=== PATIENT | male | born 1975 | race Two or more races ===

== ENCOUNTER 2018-11-08 22:23 | Emergency (ER) | payer SELFPAY ==
[~2018-11-08] VITALS: Ht 157.5 cm; Wt 61.2 kg
[2018-11-08 22:38] VITALS: BP 134/83
--- NOTE | 2018-11-08 22:39 | PHYS DOC ---
Adult General Chief Complaint Chief Complaint: SKIN PROBLEM HPI HPI Patient is a 43 year old male that presents to the ER stating that he's been seeing bugs crawling on skin for last 6 months. Describes as black bugs that are crawling on skin and out of throat and in his abdomen. Denies pain says they do itch some. States he is tried everything including even pouring gasoline on his skin. Review of Systems Review of Systems Constitutional: Denies fever or chills [] Eyes: Denies change in visual acuity, redness, or eye pain [] HENT: Denies nasal congestion or sore throat [] Respiratory: Denies cough or shortness of breath [] Cardiovascular: No additional information not addressed in HPI [] GI: Denies abdominal pain, nausea, vomiting, bloody stools or diarrhea [] : Denies dysuria or hematuria [] Musculoskeletal: Denies back pain or joint pain [] Integument: Reports bugs Neurologic: Denies headache, focal weakness or sensory changes [] Endocrine: Denies polyuria or polydipsia [] Psych: Denies SI thoughts. Complete systems were reviewed and found to be within normal limits, except as documented in this note. Physical Exam Physical Exam Constitutional: Well developed, well nourished, no acute distress, non-toxic appearance. [] HENT: Normocephalic, atraumatic, bilateral external ears normal, oropharynx moist, no oral exudates, nose normal. [] Eyes: PERRLA, EOMI, conjunctiva normal, no discharge. [] Neck: Normal range of motion, no tenderness, supple, no stridor. [] Cardiovascular:Heart rate regular rhythm, no murmur [] Lungs & Thorax: Bilateral breath sounds clear to auscultation [] Abdomen: Bowel sounds normal, soft, no tenderness, no masses, no pulsatile masses. [] Skin: Warm, dry, no erythema, no rash. [] Back: No tenderness, no CVA tenderness. [] Extremities: No tenderness, no cyanosis, no clubbing, ROM intact, no edema. [] Neurologic: Alert and oriented X 3, normal motor function, normal sensory function, no focal deficits noted. [] Psychologic: Affect normal, judgement normal, mood normal. [] EKG EKG [] Radiology/Procedures Radiology/Procedures [] Course & Med Decision Making Course & Med Decision Making Pertinent Labs and Imaging studies reviewed. (See chart for details) During exam, patient was pointing at "bugs" on his skin. No bugs or rash was seen. Patient was hallucinating. Discussed with patient the need to obtain a primary care provider and follow up with a psychiatric provider. Resources for both primary care and outpatient psych were given. Dragon Disclaimer Dragon Disclaimer This electronic medical record was generated, in whole or in part, using a voice recognition dictation system. Departure Departure Impression: Primary Impression: Hallucinations of tactile sensation Disposition: 01 HOME, SELF-CARE Condition: STABLE Patient Instructions: Hallucinations and Delusions Additional Instructions: Thank you for visiting [facility]. We appreciate you trusting us with your care. If any additional problems come up don't hesitate to return to visit us. Please follow up with your primary care provider so they can plan additional care if needed and know about the problem that you had. If symptoms worsen come back to the Emergency Department. Any concerning symptoms that start such as chest pain, shortness of air, weakness or numbness on one side of the body, running high fevers or any other concerning symptoms return to the ER. Please follow up with primary care and with [facility] or [facility]. See resources given. ALEX ALBARRAN APRN Nov 08, 2018 22:39
== END 2018-11-08 22:43 | disposition home or self-care (01) ==
LOC: ER 22:23
DX: R44.2 Other hallucinations (principal)
CPT/HCPCS: 99281